=== PATIENT | male | born 1950 | race Caucasian/White ===

== ENCOUNTER 2018-07-12 08:57 | Day surgery (SDC) | payer OTHER ==
[2018-07-01 16:13] VITALS: BMI 28.4
[~2018-07-12] VITALS: Ht 170.2 cm; Wt 82.9 kg
[2018-07-12] VITALS (10 sets, daily range): BP systolic 107–163; BP diastolic 65–94; PULSE 65–72; RESP 18–21; Ht 170.2 cm; Wt 82.9 kg
[~2018-07-12 08:57] MED LIST: AMIT10TA6 PO; AMLO-147 PO; CEFAZOLIN 1 GM INJ ONE; DEXAMETHASONE 4 MG/ML 5 ML INJ ONE; DICLOFENAC 3% TOPICAL; FENTAnyl 50 MCG/ML VIAL ONE; GLYCOPYRROLATE 0.4 MG INJ ONE; IBUP-1545 PO; LIDOCAINE OINT; MIDAZOLAM 1 MG/ML 2 ML INJ ONE; NEOSTIGMINE 3 MG/3 ML SYRINGE ONE; ONDANSETRON 4 MG INJ ONE; PROPOFOL 20 ML ONE; ROCURONIUM 50 MG INJ ONE; ROPIVACAINE 0.5 % 30 ML VIAL ONE; VIT D
--- NOTE | 2018-07-12 10:11 | PREAC ---
Date/Time of Note Date/Time of Note DATE: 07/12/18 TIME: 10:09 Anesthesia Eval and Record Evaluation Time Pre-Procedure Interview DATE: 07/12/18 TIME: 10:09 Age 68 Sex male NPO: 8 hrs Preoperative diagnosis RIGHT ANKLE RETAINED HARDWARE Planned procedure RIGHT ANKKLE SCOPE, EXTENSIVE DEBRIDEMENT, REMOVAL OF PLATE AND SCREWS MEDIAL AND LATERAL MALLEOLUS Past Medical History Past Medical History: Includes Cardio: HTN Surgery & Anesthesia Issues No known issue Meds Anticoagulation: No Beta Anna within 24 hr: No Reason Beta Anna not given: Pt. not on B-Anna Reported Medications [Vit D] No Conflict Check, DAILY 07/01/18 [Lidocaine Oint] No Conflict Check, DAILY PRN for PAIN 07/01/18 [Diclofenac Gel 3%] No Conflict Check, TOPICAL PRN for EBONY 07/01/18 Ibuprofen* (Ibuprofen*) 800 Mg Tab, 800 MG PO TID PRN for PAIN, TAB 07/01/18 Amlodipine Besylate* (Amlodipine Besylate*) 10 Mg Tablet, 10 MG PO DAILY, #30 TAB 07/01/18 Amitriptyline Hcl* (Amitriptyline Hcl*) 10 Mg Tablet, 20 MG PO QHS, #60 TAB 07/01/18 Meds reviewed: Yes Allergies Coded Allergies: No Known Allergies (Verified Allergy, Unknown, 07/12/18) Allergies Reviewed: Yes Labs/Studies Labs Reviewed: Reviewed by anesthesiologist Result Diagram: 07/12/18 0940 Laboratory Tests 07/12/18 09:40 test: N/A Studies: ECG (NL), CXR (CALCIFICATION LEFT PERIHILAR AREA, PATIENT INFORMED) Pre-procedure Exam Last vitals Vital Signs Date Temp Pulse Resp B/P (MAP) Pulse Ox O2 O2 Flow FiO2 Time Delivery Rate 07/12/18 98.1 65 18 163/94 99 Room Air 09:52 (117) Airway: Adequate mouth opening, Adequate thyromental dist Mallampati: Mallampati II Teeth: Abnormal (SEVERAL MISSING AND BROKEN TEETH) Lung: Normal Heart: Normal ASA Physical Status ASA physical status: 2 Emergency: None Planned Anesthetic General/MAC: ETT Nerve block: Sciatic (right) Planned Pain Management Single shot nerve block, Parenteral pain med Pre-operative Attestations Prior to commencing anesthesia and surgery, the patient was re-evaluated, there was verification of: *The patient's identity *The results of appropriate recent lab work and preoperative vital signs *The above evaluation not changing prior to induction *Anesthetic plan, risk benefits, alternative and complications discussed with patient/family; questions answered; patient/family understands, accepts and wishes to proceed. Lux Eubanks M.D. Jul 12, 2018 10:11
[2018-07-12] MEDS ORDERED: FENTAnyl 50 MCG/ML VIAL IV PRN ×3 (10:30)
[2018-07-12] MEDS ORDERED: OXYCODONE/ACETAMINOPHEN (5/325) TAB PO PRN ×4 (10:30→14:30)
[2018-07-12] MEDS ORDERED: ALBUTEROL 0.083% (NEB) 2.5 MG/3 ML AMP HHN PRN (10:30)
[2018-07-12] MEDS ORDERED: MIDAZOLAM 1 MG/ML 2 ML INJ IV PRN (10:30)
[2018-07-12] MEDS ORDERED: IPRATROPIUM (NEB) 0.5 MG/2.5 ML AMP HHN PRN (10:30)
[2018-07-12] MEDS ORDERED: EPHEDrine SULFATE 50 MG/5 ML SYG IV PRN (10:30)
[2018-07-12] MEDS ORDERED: TRIMETHOBENZAMIDE 100 MG/ML VIAL IM PRN (10:30)
[2018-07-12] MEDS ORDERED: hydrALAzine 20 MG INJ IV PRN (10:30)
[2018-07-12] MEDS ORDERED: LABETALOL HCL 20MG INJ IV PRN (10:30)
[2018-07-12] MEDS ORDERED: MEPERIDINE 25 MG INJ IV PRN (10:30)
[2018-07-12] MEDS ORDERED: DIPHENHYDRAMINE 50 MG INJ IV PRN (10:30)
[2018-07-12] MEDS ORDERED: ONDANSETRON 4 MG INJ IV PRN ×2 (10:30→14:30)
[2018-07-12] MEDS ORDERED: HYDROmorphONE 1 MG/5 ML IV SYRINGE IV PRN ×3 (10:30)
[2018-07-12] MEDS ORDERED: ROPIVACAINE 0.5 % 30 ML VIAL ONE (13:25)
[2018-07-12] MEDS ORDERED: POVIDONE IODINE 10% 28.4 GM OINT ONE (13:25)
[2018-07-12] MEDS ORDERED: POLYMYXIN/BACITRACIN 1L IRRIG ONE (13:25)
[2018-07-12] MEDS ORDERED: SOD CHLORIDE 0.9% 1,000 ML IV SCH (14:10)
--- NOTE | 2018-07-12 14:10 | OPPN ---
Date/Time of Note Date/Time of Note DATE: 07/12/18 TIME: 14:08 Operative Report Preoperative Diagnosis Right ankle painful hardware, arthrofibrosis right ankle Postoperative Diagnosis Same Operation/Procedure Performed 1. Right ankle arthroscopy with extensive debridement 2. Removal of hardware right tibia and fibula Surgeon see signature line dental laboratory assistant Mendoza Pappas MD Anesthesia: general, other Estimated blood loss: minimal Transfusion Required none Specimen none Grafts/Implants none Complications none MONICA TOSCANO MD Jul 12, 2018 14:10
[2018-07-12] MEDS ORDERED: morphine 2 MG INJ IV PRN (14:30)
--- NOTE | 2018-07-12 14:47 | PAC ---
Date/Time of Note Date/Time of Note DATE: 07/12/18 TIME: 14:47 Post-Anesthesia Notes Post-Anesthesia Note Last documented vital signs Vital Signs Date Temp Pulse Resp B/P (MAP) Pulse Ox O2 O2 Flow FiO2 Time Delivery Rate 07/12/18 98.1 65 18 163/94 99 Room Air 09:52 (117) Activity: WNL Respiratory function: WNL Cardiovascular function: WNL Mental status: Baseline Pain reasonably controlled: Yes Hydration appropriate: Yes Nausea/Vomiting absent: Yes Lux Eubanks M.D. Jul 12, 2018 14:47
--- NOTE | 2018-07-12 16:07 | OPR ---
DATE OF OPERATION: 07/12/2018 PREOPERATIVE DIAGNOSES: 1. Status post fracture dislocation of the right ankle with open reduction and internal fixation of the medial distal tibial fractures and fibular fractures. 2. Arthrofibrosis and scar tissue of the right ankle. 3. Painful hardware. POSTOPERATIVE DIAGNOSES: 1. Status post open reduction and internal fixation of fracture dislocation of the medial distal tib ia and fibula. 2. Adhesions, scar tissue and fibrosis. 3. 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 4. Painful hardware. OPERATIONS PERFORMED: 1. Arthroscopy, right ankle with soft tissue distraction. 2. Extensive debridement of the ankle. 3. Removal of 5 screws and a plate from the medial tibia. 4. Removal of 9 screws, syndesmosis TightRope and plate from the fibula. 5. Use of fluoroscopy to verify position and alignment of the plates and screws. 6. Short-leg splint. SURGEON: Monica Summers MD [employer] INTERN: Mendoza Pappas MD ANESTHESIA: General with popliteal block. TOURNIQUET TIME: 60 minutes. Extremely complex difficult procedure because the patient had a lot of scar tissue and adhesions in t he ankle, making it difficult to get into the ankle and get around and do the procedure intraarticula rly. In addition, the patient had 5 screws and a plate on the medial side of his distal tibia and 9 screws and the syndesmosis TightRope on his fibula necessitating an extensive amount of surgery. Bec ause of the complexity and the prolonged length of the surgery which an additional 60 minutes, additi onal time should be considered (22). DESCRIPTION OF PROCEDURE: The patient was taken to the operating room and placed in supine position. Satisfactory popliteal block was given. Satisfactory general anesthesia was administered, 2 grams Ancef given intravenously. The right thigh was secured in the thigh best. All areas were carefull y padded. Superficial peroneal nerve was marked out. The right leg was prepped and draped in the us ual manner. Superficial peroneal nerve was avoided. The soft tissue distraction was applied. Exten sive amount of fibrosis and scarring was seen throughout the ankle. The medial malleolar talar artic ulation was ____ in scars with the distal tibia, syndesmosis lateral gutter and anterior gutter. The re were thick scar bands including the front of the ankle, making it difficult to see and to get from the front to the back. A basket was used to cut the thick scar bands. Shaver was used to debride t he scar bands, debride the medial malleolar talar articulation, debride the lateral malleolar talar a rticulation, the deltoid ligament and anterior talofibular and calcaneofibular ligaments were scarred but otherwise intact. Scar tissue was removed completely from the front of the ankle. Once the ent itz front of the ankle could be exposed and debrided, there was some grade II, some mild grade III ch ondromalacia on the anterior portion of the ankle, also centrally and posteriorly. It was worse ante riorly then posteriorly. All the scar tissues was removed from the syndesmosis posterolaterally. Th e scar tissue was removed from the posterior gutter of the ankle. The ligaments were scarred but oth erwise intact. After complete debridement, we were able to see the entire ankle and moved much more freely and looked much better. The ankle was then irrigated clear. The ankle was then reprepped and draped. New gowns and gloves and all new instruments were used. Tourniquet was inflated to 250 mmHg. We made an incision along the distal portion of the fibula and then along the proximal portion of the fibula where there were no screws on this very long plate. We did not make this incision to try to save from making an incision too long. Dissection was carried down to the subcutaneous tissue distally. There were locking screws, which were identified and remov ed. The proximal incision was then made. Dissection was carried down to subcutaneous tissue again u sing extreme caution to avoid injuring neurovascular structures. The syndesmosis TightRope was cut s harply and these 3 screws above were removed. As mentioned, the 6 screws below were removed. We cou ld not take the plate off until we cut the syndesmosis TightRope segment on the other side of the med ial tibia. Incision was then made through the medial tibial incision. Dissection was carried down t o subcutaneous tissue. The locking screws and nonlocking screws were removed. The TightRope, end of it, button was cut and removed. The entire medial plate was removed. The holes were curetted and t he debris was removed. The plate was then freed up in the lateral side of the fibula and subsequentl y removed pulling the syndesmosis TightRope device was at. The holes were then curetted clear and de brided. Wounds were irrigated with liter and a half of antibiotic solution medially and laterally. The lateral wounds were then closed with 2-0 undyed running 0 PDS in the deep tissue. Subcutaneous t issue was closed with 3-0 undyed Vicryl and skin with 4-0 black nylon interrupted vertical mattress s utures. The medial wound was closed similarly with a running 2-0 PDS on the deep tissues. Subcutane ous tissue was closed with 2-0 and 3-0 undyed Vicryl and the skin with 4-0 black nylon. Saphenous ne rve block was done with 0.5% ropivacaine. Compression dressing was applied as well as a posterior sp lint in neutral position. Prior to placing the splint on, final fluoroscopic views were done in AP, lateral and mortise position which showed complete removal of the plate and screws without any fractu res of the medial and lateral aspects of the ankle. After the splint was applied, the patient was th en brought to recovery room in stable condition. Interprocedure sponge and needle count was correct. The patient tolerated procedure well. NUTRITION REPRESENTATIVE ORTHOPEDIC SURGEON: During the procedure, an ssn/ssbn assistant navigator orthopedic surgeon was used at [facility]. The ssn/ssbn assistant navigator helped with distracting the ankle, manipulating the arthroscope, also removing the screws ____ countertraction. Without a skilled orthopedic surgeon ssn/ssbn assistant navigator, this could not be done and should be compensated appropriately. Dictated By: MONICA MAIER/MARIYA Conf#: [id number] DID#: [id number]
== END 2018-07-12 15:23 | disposition home or self-care (01) ==
LOC: SDS 08:57
PROVIDERS: ATTEND Orthopaedic Surgery
DX: T84.84XA Pain due to internal orthopedic prosthetic devices, implants and grafts, initial encounter (principal); Y79.3 Surgical instruments, materials and orthopedic devices (including sutures) associated with adverse incidents; M94.271 Chondromalacia, right ankle and joints of right foot; L90.5 Scar conditions and fibrosis of skin
CPT/HCPCS: 20680; 29898; 73600; 80053; 85025; 85610; 85730; 88300; J0690; J1100; J2250; J2405; J2710; J2795; J3010